=== PATIENT | female | born 1985 | race Caucasian/White ===

== ENCOUNTER 2020-11-27 08:46 | Emergency (ER) | payer OTHER ==
[~2020-11-27] VITALS: Ht 162.6 cm; Wt 72.6 kg
--- OUTSIDE RECORDS SUMMARY | 2020-11-27 08:48 | XMS ---
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 Isidro has no Care Guidelines for this patient. Kirk VISIT COUNT (12 MO.) 1 M[facility]HE Membreno TOTAL 1 NOTE: Visits indicate total known visits. ED/C VISIT TRACKING (12 MO.) 11/27/2020 08:47 [facility] Glez [place] TYPE: Emergency COMPLAINT: - SOB INPATIENT VISIT TRACKING (12 MO.) No inpatient visits to display in this time frame [email or web address]
[2020-11-27] MEDS ORDERED: VENTOLIN HFA18 GM INH (09:01)
[2020-11-27] MEDS ORDERED: CODEINE-GUAIFE120 ML PO (09:02)
[2020-11-27] MEDS ORDERED: AZITHROMYCIN500 MG PO (09:02)
[2020-11-27] MEDS ORDERED: FLOVENT HFA12 G1 INH (09:03)
== END 2020-11-27 11:30 | disposition home or self-care (01) ==
LOC: ED 08:46
DX: U07.1 COVID-19 (principal); J12.82 Pneumonia due to coronavirus disease 2019; Z79.899 Other long term (current) drug therapy
CPT/HCPCS: 71045; 99284-25

== ENCOUNTER 2020-11-28 05:09 | Inpatient (IN) | payer OTHER ==
[~2020-11-28] VITALS: Ht 162.6 cm; Wt 74.5 kg
[~2020-11-28 05:09] MED LIST: AZITHROMYCIN500 MG PO; CODEINE-GUAIFE120 ML PO; FLOVENT HFA12 G1 INH; VENTOLIN HFA18 GM INH
--- OUTSIDE RECORDS SUMMARY | 2020-11-28 05:12 | XMS ---
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 Isidro has no Care Guidelines for this patient. [facility]12 MO.) [facility] NOTE: Visits indicate total known visits. ED/C VISIT TRACKING (12 MO.) 11[facility]28/2020 05[facility]09 [facility] COMPLAINT: - SOB 11/27/2020 08:47 [facility] [place] TYPE: Emergency COMPLAINT: - SOB INPATIENT VISIT TRACKING (12 MO.) No inpatient visits to display in this time frame [id number]
--- NOTE | 2020-11-28 08:13 | NUR ---
PT ARRIVED TO FLOOR VIA STRETCHER. PT IS ALERT AND OREINTED. 2L NC IN PLACE. PT'S RESPITORY RATE IS TACHYPNEIC. PRONING EDUCATION PROVIDED. ASSESSMENT COMPPLETED. PT LUNGS CLEAR AND DIM IN BASES. VITALS TAKEN AND STABLE. ORIENTED TO ROOM AND EDUCATED ON PLAN OF CARE. CALL LIGHT IN REACH. PT DENEIS NEEDS OR QUESTIONS.
--- NOTE | 2020-11-28 12:07 | NUR ---
PT REPROTS FEELINGS OF ANXIETY, MIND RACING AND INABLILTY TO SLEEP. PT REPORTS LAST TIME SHE SLEPT WAS [address] SUAREZ NOTIFIED. ORDER PLACED FOR 1MG ATIVAN. MEDICATION ADMINISTERED. PT SELF PRONING IN BED. 2L NC IN PLACE.
--- NOTE | 2020-11-28 14:37 | NUR ---
ROUNDED ON PT. PT FOUND SITTING UP IN BED. PT REPROTS ANXIETY IS STILL HIGH AND ATIVAN BARLEY HELPED WTIH RESTING. DR SUAREZ NOTIFIED. AWAITING ORDERS NOW.
--- NOTE | 2020-11-28 18:27 | NUR ---
IN FOR VITALS. PT WITH LOW GRADE FEVER OF 99.9 STILL. TYLENOL ADMINSTERED. PT EDUCATED ON PRONING. PILLOWS POSITIONED UNDER CHEST, HIPS AND CALVES. TITRATED PT TO 3L NC. SPO2 AT 96%. CALL LIGHT IN REACH. PT ATE 100% OF DINNER.
--- NOTE | 2020-11-28 21:21 | NUR ---
Pt on 2l nc, cpox at 97%, coop with assessment. skin very moist, gown and linen changed. Walked to br, voided dark yellow urine. On return to bed noted to have sob , white ring around lips, sats on return were 92%, increased resp rate from 18 on initial assessment to 28 at this time, repositioned to R proning position. Pt stated "I been doing the proning positions like in that paper" written proning positions pamphlet in room". calmer. afebrile at 98.8 lungs insp/exp crackles t/o. Calmer. call light and fresh fluids at hands reach. L wrist field start iv site patent. covered with coban.
--- NOTE | 2020-11-28 23:45 | NUR ---
RESTING, EYES CLOSED, LAYING ON R SIDE, O2 2LNC IN PLACE, CPOX INPLACE SATS 94%
--- NOTE | 2020-11-29 01:41 | NUR ---
resting, O2 in place, repositins self in bed, sats per cpox 96%, call light at bedside
--- NOTE | 2020-11-29 02:37 | NUR ---
Pt resting, eyes closed, on2L NC, sats 96-99%, O2 weaned off to 1L, stayed at 96-97%, as per CPOX. afebrile, coop with assessment, insp crackles t/o. tolerating fluids, voided qs. repositions self in bed, call light at bedside
--- NOTE | 2020-11-29 04:21 | NUR ---
pt used call light, moist non productive cough present, "I need more oxygen states". pt on 1L, as per CPOX sats 96%. R24. "I was trying to get into my abd and started getting very short of breath and coughing". O2 increased back to 2L, sats 98%, repositioned to her abd, medicated with robitossin cough syrup per cough. no further c/o once she got comfortable. call light at hands reach
--- NOTE | 2020-11-29 06:20 | NUR ---
pt currently back on 2L NC, was weaned down to 1L with sats 96% per CPOX. pt c/o increased air hunger while trying to do proning positions, O2 back to 2L. Lungs with crakles insp. sob with exertion noted. moist non productive cough present. cough syrup given x1, effective, afebrile this shift. voided QS. sl patent, tolerating liquids well. uses call light. proning positioning pamphlet in room. pt read it and has been doing proning positions
--- NOTE | 2020-11-29 06:40 | NUR ---
IN TO DO VITALS. pt REPORTED A HEADACHE, PRN TYLENOL GIVEN (SEE MAR). pt ABLE TO AMBULATE TO TOILET TO VOID, CONCENTRATED URINE. ENCOURAGED TO DRINK MORE FLUIDS. pt HAD INCREASED WORK OF BREATHING WHEN AMBULATED REQUIRED A MINUTE OR SO OF REST, SATS LOW 90'S. CALL LIGHT WITHIN REACH.
--- NOTE | 2020-11-29 06:57 | NUR ---
pt on o2 2lnc, cpox 96%, resting, eyes closed, no distress,
--- NOTE | 2020-11-29 07:33 | NUR ---
REPORT RECIEVED FROM JOSUE SHAVON.
--- NOTE | 2020-11-29 08:00 | NUR ---
PATIENT WAS IN BED, BROUGHT IN BREAKFAST, PATIENT SAID SHE ISNT HAVING MUCH OF AN APPETITE. PATIENT HAS NOT GOT UP TO USE THE RESTROOM YET.
--- NOTE | 2020-11-29 09:34 | NUR ---
PT IN BED SIDE LAYING. STATES SHE FEELS MUCH BETTER THAN YESTERDAY. STARTED NEW IV IN RIGHT HAND OTHER WAS FIELD START. SENT LABS. CRACKLES THROUGHOUT. 1LNC.
--- NOTE | 2020-11-29 10:00 | NUR ---
PATIENT IS IN BED, PATIENT WAS IN PRONE POSITION, PATIENT WAS VERY TIRED. PATIENT ASKED FOR ICE WATER, NOTHING ELSE TO REPORT AT THIS TIME
--- NOTE | 2020-11-29 10:01 | NUR ---
REMDESIVIR DONE. SL AND NOEMÍ BLOOD FOR ANOTHER TUBE. REFILLED WATER CUP PT IS TRYING TO DRINK MORE, URINE IS DARK.
--- NOTE | 2020-11-29 12:00 | NUR ---
PATIENT WAS BROUGHT LUNCH, PATIENT NEEDED NO OTHER ASSISTANCE AT THIS TIME
--- NOTE | 2020-11-29 12:49 | NUR ---
PT SITTING UP IN BED EATING LUNCH. DENIES NEEDS OR CONCERNS.
--- NOTE | 2020-11-29 14:00 | NUR ---
PATIENTS WATER WAS REFILLED, PATIENT ASKED FOR MORE COUGH SYRUP, PATIENT NEEDED NO OTHER ASSISTANCE
--- NOTE | 2020-11-29 14:30 | NUR ---
PATIENT WAS IN PRONE POSITION AND RESTING
--- NOTE | 2020-11-29 15:00 | NUR ---
PATIENT'S BLOOD PRESSURE WAS LOW, CHARGE NURSE WAS NOTIFIED WELL RN, PATIEINT HAD REPORTED HAVING A TIGHT CHEST AND THAT IT WAS HARD TO BREATHE, PATIENT REQUESTED MORECOUGH SYRUP
--- NOTE | 2020-11-29 15:30 | NUR ---
PT BP WAS SLIGHTLY LOW. WENT IN TO ASSESS. BP BETTER AT LOW 100'S SYS. MOVED PT TO CHAIR AND CHANGED OUT HER LINEN. PT TO RESTROOM FOR 400 YELLOW URINE OUT. PT REPORTS FEELING TIGHT IN THE CHEST. RT IN ROOM FOR NEB.
--- NOTE | 2020-11-29 17:58 | NUR ---
PT LAYING IN PRONE POSITION. BROUGHT IN DINNER.
--- NOTE | 2020-11-29 18:38 | NUR ---
PATIENT NEEDED NO OTHER ASSISTANCE, WATER FILLED CALL LIGHT WITHIN REACH
--- NOTE | 2020-11-29 20:00 | NUR ---
ANSWERED CALL LIGHT. SBA TO THE BATHROOM AND BACK TO BED. V/S AND I&O DONE. ICE WATER REFILLED. CRANBERRY JUICE PROVIDED.
--- NOTE | 2020-11-29 21:45 | NUR ---
EVENING ASSESSMENT COMPLETE. PRN FOR SLEEP AND ANXIETY ADMINISTERED PER EMAR. PT REPORTS GENERALIZED PAIN, PRN FOR PAIN PROVIDED. PRN FOR COUGH ALSO PROVIDED. PT DENIES SOB AT REST. REPORTS SOB AND "CHEST TIGHTNESS" WITH ACTIVITY. PT ON 1L/NC AT THIS TIME SATS DROPPED WITH AMBULATION TO BR. SpO2 94-96%. ENCOURAGED IS USE, PT DEMONSTRATED PROPER USE. LUNGS DIM THROUGHOUT. RESPIRATIONS EVEN. ASSISTED PT TO PRONING POSITION. PT DENIES FURTHER QUESTIONS OR CONCERNS. CALL LIGHT IN REACH.
--- NOTE | 2020-11-30 00:28 | NUR ---
PT RESTING IN BED LYING IN PRONE POSITION. SpO2 96% ON 1L/NC. HR 60'S. NO APPARENT DISTRESS.
--- NOTE | 2020-11-30 02:21 | NUR ---
PT LYING IN BED RESTING ON LEFT SIDE. SpO2 97% ON 1L/NC. HR 60'S.
--- NOTE | 2020-11-30 06:20 | NUR ---
VS AND I&O COMPLETE. PRN FOR COUGH AND GENERALIZED PAIN ADMINISTERED PER EMAR. PT UP TO BR WITH SBA TO VOID 250 YELLOW URINE. SpO2 DOWN TO 83% ON 1L/NC WITH AMBULATION. BACK TO BED, ROBER FAIR. PT REPORTS SOB. INCREASED RESPIRATIONS NOTED. RT EDUCATION PROVIDED. PT RECEPTIVE. AT REST SpO2 91-95% ON 1L/NC. MORNING LABS DRAWN PER PROTOCOL. FRESH WATER AND JUICE PROVIDED. PT DENIES FURTHER NEEDS. CALL LIGHT IN REACH.
--- NOTE | 2020-11-30 07:20 | NUR ---
this rn received report from etta ramos. pt appears to be resting at this time. this rn not in room due to covid status
--- NOTE | 2020-11-30 08:00 | NUR ---
this rn in pts room to give pt her breakfast. pt states that she is tired this am but has no other concerns this am.
--- NOTE | 2020-11-30 09:28 | NUR ---
this rn was going to go into pts room to give pt morning meds but pt appears to be proning at this time on room air at 92% pt also appears to be resting at this time comfortably in the prone position, this rn to allow pt to rest at this time.
--- NOTE | 2020-11-30 10:15 | NUR ---
THIS RN IN PTS ROOM TO GIVE PT HER MORNING MEDS AND DO ASSESSMET. PT STATES THAT SHE IS FEELING GOOD, STILL TIRED BUT IMPROVING. PT ON 0.5L. PT WHEN MOVING FROM THE PRONING DID DESAT TO HIGHER 80'S, THIS RN BUMPED PT TO 1L.
--- NOTE | 2020-11-30 10:20 | NUR ---
Spoke with Jada. She states she lives out of [place] towards [facility]. She lives with her spouse Westley. She is usually healthy and active. Her parents are staying with her children and her mother has had covid and will stay with her as long as she needs. Pt states she is in a 2 story home and has been having difficulty walking up and down stair due to sob. Per 829 meeting pt will be here for 5 days on remdesiver and steroids. Pt denies needs for dc, we did discuss pos- sibilty of 02 and I will assist her with this if needed. She would like [place] if 02 is needed.
--- NOTE | 2020-11-30 11:00 | NUR ---
THIS RN IN PTS ROOM TO SWITCH PT OFF REMEDESIVIR. PT STATES THAT SHE NEEDS TO USE THE RESTROOM. ON THE WAY BACK TO FROM RESTROOM PT DESATED TO 84% ON 1L PT THEN STATED SHE WAS NAUSEOUS BUT THAT WAS SLOWY GOING AWAY SHE RESTED. PT CAME BACK UP THE 90'S ON 1L WITHIN 2MINS.
--- NOTE | 2020-11-30 12:15 | NUR ---
This RN assumes care of this patient at this time. Pt resting in bed with eyes closed, on 1L NC with SPO2 at 95% at rest. No needs identified currently, will continue plan of care. Call light within reach.
--- NOTE | 2020-11-30 14:47 | NUR ---
Spoke with Jada. She states she lives out of [place] towards [facility]. She lives with her spouse Westley. She is usually healthy and active. Her parents are staying with her children and her mother has had covid and will stay with her as long as she needs. Pt states she is in a 2 story home and has been having difficulty walking up and down stair due to sob. Per 829 meeting pt will be here for 5 days on remdesiver and steroids. Pt denies needs for dc, we did discuss pos- sibilty of 02 and I will assist her with this if needed. She would like [facility] from [place] for DME.
--- NOTE | 2020-11-30 15:30 | NUR ---
Assessment complete, pt requests PRN tylenol for generalized body aches and states having mild nausea, PRN ondansetron ordered per MD. Pt lung sounds clear, HRR. VSS- 99.2 temperature noted. Crackers and fresh water provided. Reviewed plan of care with pt who is agreeable. Call light in reach, no other needs at this time.
--- NOTE | 2020-11-30 18:29 | NUR ---
This RN in room to assist patient with shower, gown and linens changed, room tidied. Vitals taken, I/O's complete. Fresh water provided. Pt educated regarding medications, plan of care, pt is agreeable and verbalizes understanding. Pt expresses gratitude for staff and has no needs or complaints. CPOX in place, spo2 94% on 0.5L O2. Pt did have SOB with exertion to shower but recovers quickly with rest and O2.
--- NOTE | 2020-11-30 19:25 | NUR ---
RECEIVED REPORT FROM DAY SHIFT RN. PATIENT IS RESTING IN BED WATCHING TV. PATIENT DENIES ANY NEEDS. CALL LIGHT IN REACH.
--- NOTE | 2020-11-30 21:25 | NUR ---
PATIENT ASSESMENT COMPLETED. PATIENTS VITALS TAKEN AND RECORDED. PATIENTS INTAKE AND OUPUT RECORDED. PATIENT GIVEN PRN MEDICATION PER ORDER FOR A COMPLAINTS OF A COUGH. PATIENT GIVEN PRN MELATONIN PER REQUEST. PATIENT GIVEN PRN ANXIETY MEDICATIONS PER REQUEST. PATIENT DENIES ANY PAIN OR SOB. PATIENTS IV IS SL AND FLUSHES WELL. PATIENT REMAINS ON 0.5L VIA NC AND STURATIONS ARE WNL. PATIENT HAS CPOX IN PLACE. PATIENT DENIES ANY FURTHER NEEDS. CALL LIGHT IN REACH.
--- NOTE | 2020-11-30 22:52 | NUR ---
PATIENT IS RESTING IN BED WITH EYES CLSOED, CPOX READINGS ARE WNL. CALL LIGHT IN REACH.
--- NOTE | 2020-12-01 00:29 | NUR ---
PATIENT IS RESTING IN BED WITH EYES CLOSED, RR16. OXYGEN SATURATION ON CPOX IS 94%. CALL LIGHT IN REACH.
--- NOTE | 2020-12-01 03:17 | NUR ---
PATIENT IS RESTING IN BED WITH EYES CLOSED, RR 15. CPOX READINGS ARE FOLLOWS 94% ON 0.5L VIS NC AND HR 78. CALL LIGHT IN REACH.
--- NOTE | 2020-12-01 05:36 | NUR ---
PATIENT ASSESMENT COMPLETED. PATIENTS OXYGEN PROBE ON FINGER REPLACED. PATIENTS OXYGEN INCREASED TO 1L VIA NC. PATIENTS VITALS TAKEN AND RECORDED. INATAKE AND OUPUT RECORDED. PATIENT UP TO RESTROOM A SBA. PATIENT STARTED TO BREATH FAST AND SHALLOW DURING AMBULATION. PATIENT BECAME ANXIOUS. EDUCATED PATIENT IN PURSED LIPPED BREATHING. PATIENT WAS ABLE TO SLOW BEATHING AND DEEP BREATH AFTER X5 BREATHS. PATIENT WAS ABLE TO CALM AND OXYGEN SATURATIONS REMAINED WNL. BLOOD DRAWN AN SENT TO LAB. ICE ATER REFILLED. NO FURTHER NEEDS NOTED. CALL LIGHT IN REACH.
--- NOTE | 2020-12-01 07:15 | NUR ---
Report received from Gege SALAS. Pt resting in bed, SPO2 at 93% at rest. No needs identified, will continue plan of care.
--- NOTE | 2020-12-01 08:33 | NUR ---
Scheduled medications administered, assessment complete. Pt states feeling fatigued this morning and having generalized discomfort, chest tightness. PRN tylenol and albuterol tx provided. Lung sounds clear and diminished in bases. Pt states poor appetite, taking good PO fluids. Care plan reviewed with pt who is agreeable. Using I.S. and proning independently. Call light in reach, no further needs at this time
--- NOTE | 2020-12-01 08:45 | NUR ---
IV Remdesevir administered along with PRN Robitussin and Vistaril for anxiety. Pt educated regarding slow, deep breathing and demonstrates learning. Fresh water provided. No other needs.
--- NOTE | 2020-12-01 10:00 | NUR ---
IV complete, saline locked. VS and I/O's complete, stable. Pt ambulates to BR with SBA and drops to 89% Recovers within 30 seconds to 92%. Pt requests toast, provided. No other needs at this time.
--- NOTE | 2020-12-01 11:20 | NUR ---
No change in plan for dc. Pt cont. to not feel well and have low sat at times.
--- NOTE | 2020-12-01 16:50 | NUR ---
In room to assess patient, she is sitting up in bed and states no needs. Lung sounds clear in upper lobes and diminished in bases. On 1L O2 via NC, spo2 93%. Pt states she has been able to ambulate to BR by self without becoming SOB or dizzy. Voiding quantity sufficient. Tolerating adequate PO intake. Pt in cheerful mood. Discussed plan of care for time of discharge, how patient will leave building, succession of events leading to that point. Pt expresses gratitude and states feeling "less anxious today." Call light in reach, she calls appropriately.
--- NOTE | 2020-12-01 16:55 | NUR ---
No change in plan for dc. Pt remains in CCU with covid.
--- NOTE | 2020-12-01 18:42 | NUR ---
PT FEELS BETTER TODAY SINCE STAYING UPRIGHT IN BED AND AMBULATING AROUND THE ROOM. PT STATES THEY ARE STILL PRODUCTIVLY COUGHING AND PT HAD MORE BURPING THAN USUAL TODAY. CALL LIGHT WITHIN REACH. FRESH ICE WATER GIVEN. NO FURTHER NEEDS AT THIS TIME.
--- NOTE | 2020-12-01 19:46 | NUR ---
RECEIVED REPORT FROM DAY SHIFT RN. PATIENT IS RESTING IN BED WATCHING TV. PATIENT DENIES ANY NEEDS. CALL LIGHT IN REACH.
--- NOTE | 2020-12-01 22:04 | NUR ---
PATIENT ASSESMENT COMPLETED. VITALS TAKEN AND RECORDED. INTAKE AND OUPUT RECORDED. PRN ANXIETY MEDICATION GIVEN PER REQUEST. PATIENT REPORTS COUGH. PATIENT GIVEN PRN COUGH MEDICATION PER ORDER. PATIENT IS ON 0.5L VIA NC AND OXYGEN SATURATION IS 96%. PATIENT DENIES ANY PAIN OR SOB. PATIENT PROVIDED WITH ICE WATER. NO FURTHER NEEDS NOTED. CALL LIGHT IN REACH.
--- NOTE | 2020-12-01 23:33 | NUR ---
PATIENT IS RESTING IN BED WITH EYES CLOSED, RR 16. BREATHING IS EVEN AND UNLABORED. CALL LIGHT IN REACH.
--- NOTE | 2020-12-02 01:47 | NUR ---
PATIENT IS RESTING IN BED WITH EYES CLOSED. BREATHING IS EVEN AND UNLABORED, RR 15. CALL LIGHT IN REACH.
--- NOTE | 2020-12-02 03:51 | NUR ---
PATIENT IS RESTING IN BED WITH EYES CLSOED, RR 15. CALL LIGHT IN REACH.
--- NOTE | 2020-12-02 07:00 | NUR ---
PATIENTS VITALS TAKEN AND RECORDED. INTAKE AND OUPUT RECORDED. PATIENT REPORTS "HEARTBURN". PATIENT GIVEN PRN MEDICATION PER ORDER. PATIENT REMAINS ON 0.5L VIA NC. PATIENT DENIES ANY PAIN OR SOB. PATIENT DENIES ANY FURTHER NEEDS. CALL LIGHT IN REACH.
--- NOTE | 2020-12-02 08:57 | NUR ---
HOME O2 QUALIFY ORDER PLACED AND RESPITORY THERAPY NOTIFIED.
--- NOTE | 2020-12-02 09:30 | NUR ---
REPORT RECEIVED FROM NIGHT RN AND PT. CARE RESUMED. PT. IS ALERT AND ORIENTED. SHE REPORTS THAT HER MENTATION HAS BEEN "FUZZY" THIS MORNING. ALSO REPORTS FEELING LIGHT HEADED AND NAUSEA WHEN WORKING WITH O2 QUALIFICATION. IV SITE WNL AND FLUSHES WELL. FINE CRACKLES PRESENT IN LLL AND DIM. IN THE RLL. PT. ON 2L NC AND O2 SAT IS 96% DISCUSSED POC AND MEDS. LEFT RESTING WITH CALL LIGHT IN REACH.
--- NOTE | 2020-12-02 09:30 | NUR ---
Received 02 qualifier for pt requiring 02 2-4 L on dc. Per 0830 meeting pt can DC to home today. Requested RX for [address] West showing pt will need 02. Face sheet, order, 02 qualifier, H&P, Note faxed to [facility] as pt had requested this on admission. CAlled and spoke with Jayleen at [facility]. She states drivers can deliver 02 to pts home early afternoon. They will bring a tank for pt to transport home. Attempted to call pt, phone is busy. Updated her RN and she will let her know of dc early afternoon [address]
--- NOTE | 2020-12-02 10:37 | NUR ---
UPDATE PROVIDED TO PATIENT ABOUT OXYGEN TANK TO BE DELIVERED TO [facility] UNABLE TO TRANSPORT OXYGEN TO PT'S HOUSE UNTIL THIS AFTERNOON. PT DENIES OTHER NEEDS FOR DISCHARGE.
[2020-12-02] MEDS ORDERED: HYDROXYZINE PAM25 MG PO (11:37)
[2020-12-02] MEDS ORDERED: BENZONATATE100 MG PO (11:38)
[2020-12-02] MEDS ORDERED: DEXAMETHASONE6 MG PO (11:38)
[2020-12-02] MEDS ORDERED: ADDERALL XR 3030 MG PO (11:59)
--- NOTE | 2020-12-02 14:30 | NUR ---
Transport 02 has arrived, pt preparing for dc.
--- NOTE | 2020-12-02 15:05 | NUR ---
ALL DISCHARGE INSTRUCTIONS REVIEWED AND QUESTIONS ANSWERED. EXPLAINED HOW TO USE HOME O2 AND ASSISTED WITH SETTING UP. PT. LEFT WITH ALL BELONGINGS VIA WHEELCHAIR WITH RN TO 'S CAR.
== END 2020-12-02 14:45 | disposition home or self-care (01) | DRG 177 ==
LOC: ED 05:09 → MS 07:37
PROVIDERS: ADMIT Internal Medicine; ATTEND Internal Medicine
PROC: 8E0ZXY6 Isolation (ICD-10-PCS; principal; 2020-11-28)
PROC: 3E0DX3Z Introduction of Anti-inflammatory into Mouth and Pharynx, External Approach (ICD-10-PCS; 2020-11-28)
PROC: XW033E5 Introduction of Remdesivir Anti-infective into Peripheral Vein, Percutaneous Approach, New Technology Group 5 (ICD-10-PCS; 2020-11-28)
DX: U07.1 COVID-19 (principal); J12.82 Pneumonia due to coronavirus disease 2019; J96.01 Acute respiratory failure with hypoxia; J45.909 Unspecified asthma, uncomplicated; Z98.890 Other specified postprocedural states; Z79.899 Other long term (current) drug therapy
CPT/HCPCS: 71045; 80053; 85025; 94640; 94760; 94761; 94762; 99285-25; A9270; C9803; J1650; J2060; J2405; J7050; J8540; Q0177; U0003

== ENCOUNTER 2022-06-27 09:54 | Emergency (ER) | payer OTHER ==
[~2022-06-27] VITALS: Ht 162.6 cm; Wt 79.8 kg
[~2022-06-27 09:54] MED LIST changes: +ADDERALL XR 3030 MG PO; +BENZONATATE100 MG PO; +DEXAMETHASONE6 MG PO; +HYDROXYZINE PAM25 MG PO
--- NOTE | 2022-06-28 16:41 | EKG ---
[facility] [address] [facility] [place] [address] Signed Normal sinus rhythm Incomplete right bundle branch block Borderline ECG No previous ECGs available Confirmed by CRISTI BETTS MD ([id number]) on 06/28/2022 4:41:15 PM Electronically Signed By: CRISTI BETTS MD 06/28/22 164 PATIENT NAME: BORA CARRERAFRANCES PA Electrocardiogram DATE OF : 89 PHYSICIAN: CRISTI BETTS MD REPORT #: [id number] REPORT IS CONFIDENTIAL AND NOT TO BE RELEASED WITHOUT AUTHORIZATION
== END 2022-06-27 13:08 | disposition home or self-care (01) ==
LOC: ED 09:54
DX: M94.0 Chondrocostal junction syndrome [Tietze] (principal); Z79.899 Other long term (current) drug therapy
CPT/HCPCS: 36415; 80053; 81003; 83690; 84484; 84703; 85025; 85379; 93005; 93010; 96374; 96375; 99284-25; J1885; J7121